=== PATIENT | female | born 1985 | race Caucasian/White ===

== ENCOUNTER 2023-01-15 07:20 | Outpatient (OUT) | payer OTHER, SELFPAY ==
[2023-01-15 08:45] VITALS: BP 137/84; PULSE 69
--- OUTSIDE RECORDS SUMMARY | 2023-02-19 19:28 | XMS_ITS | CCD ---
Author Name Unknown Address [address] [place] [id number] Organization [facility] Care Team Providers Care Slate Splitting Supervisor Name Role Phone DWIGHT ZAIDI Attending Unavailable DYAN, DWIGHT Admitting Unavailable DYAN, DWIGHT Consulting Unavailable DWIGHT ZAIDI Attending Unavailable DR ALBAN LONGORIA Consulting Unavailable DYAN, DWIGHT Admitting Unavailable DWIGHT ZAIDI Consulting Unavailable AURELIA, ANTOINE Referring Unavailable RASHMI JACOBO Primary Care Unavailable Nirav MEDIA REPORTER - Rashmi CHAVIS Primary Care Provider Nirav MEDIA REPORTER - Rashmi CHAVIS Primary Care Provider Nirav VILLARREAL - Rashmi CHAVIS Primary Care Provider ANTOINE MOSES Referring Unavailable RASHMI MARIE Primary Care Unavail able ANTOINE MOSES Referring Unavailable RASHMI MARIE Primary Care Unavail able AURELIA, ANTOINE Referring Unavailable RASHMI MARIE Primary Care Unavail able ANTOINE MOSES Referring Unavailable RASHMI MARIE Primary Care Unavail able JERAD GARCIA Attending Unavailable JERAD GARCIA Attending Unavailable JERAD GARCIA Attending Unavailable JERAD GARCIA Attending Unavailable JERAD GARCIA Referring Unavailable SHYANNE NAGEL Attending Unavailable Allergies Allergy Classification Reported Allergen(s) Allergy Type Date of Onset Reaction(s) Facility (4 sources) Wheat gluten extract Drug Allergy 2 Headaches, Swelling [facility] (1 source) Lactase / Lactobacillus acidophilus Drug Allergy 3 Diarrhea, Itching, Swelling [facility] Medications Current Medications Medication Drug Class(es) Dates Sig (Normalized) Sig (Original) Bisacodyl (4 sources) Stimulant Laxative Bisacodyl (LAXATIVE PO) Take by mouth OTC 0 Active levothyroxine sodium 0.025 mg oral tablet (1 source) l-Thyroxine Start: 08-06-2022 take 1 tablet by mouth once daily levothyroxine (SYNTHROID) 25 MCG tablet Indications: 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 TAKE 1 TABLET BY MOUTH EVERY DAY 30 tablet 0 08/06/2022 Active 24 hr metFORMIN hydrochloride 500 mg extended release oral tablet (3 sources) Biguanide Start: 12-22-2021 take 2 tablets by mouth twice daily metFORMIN (GLUCOPHAGE-XR) 500 MG extended release tablet Indications: PCOS (polycystic ovarian syndrome) TAKE 2 TABLETS BY MOUTH TWICE A DAY 120 tablet 3 12/22/2021 Active Start: 11-13-2021 take 2 tablets by mo uth twice daily metFORMIN (GLUCOPHAGE-XR) 500 MG extended release tablet Indications: PCOS (polycystic ovarian syndrome) TAKE 2 TABLETS BY MOUTH TWICE A DAY 120 tablet 2 11/13/2021 Active Multiple Vitamin (MULTIVITAM IN PO) (4 sources) Multiple Vitamin (MULTIVITAMIN PO) Take by mouth 0 Active Vit-Fe Fumarate-FA ( COMPLETE) 14-0.4 MG TABS (1 source) Vit-Fe Fumarate-FA ( COMPLETE) 14-0.4 MG TABS Take by mouth 0 Active wheat dextrin 3000 mg powder for oral solution (3 sources) Start: 10-04-2021 End: 01-02-2022 Wheat Dextrin (BENEFIBER) PO WD Indications: Constipation, unspecified constipation type Take 4 g by mouth in the morning and 4 g at noon and 4 g in the evening. Take with meals. 500 g 0 10/04/2021 01/02/2022 Active take 4 g by mouth th ree times daily at mealtime Wheat Dextrin (BENEFIBER) POWD Take 4 g by mouth 3 times daily (with meals) 0 Active Problems Active Problems Problem Classification Problem Date Documented Date Episodic/Chronic Menstrual disorders (4 sources) Irregular menstruation, unspecified; Translations: [IRREGULAR MENSTRUATION UNSPECIFIED] Onset: 11-14-2020 Chronic Mood disorders (3 sources) Recurrent major depressive episodes, moderate ; Translations: [Major depressive disorder, recurrent, moderate] Onset: 10-04-2021 10-04-2021 Chronic Other endocrine disorders (5 sources) Polycystic ovary syndrome; Translations: [Polycystic ovarian syndrome] Onset: 10-04-2021 Chronic Other endocrine disorders (1 source) Polycystic ovarian syndrome; Translations: [Polycystic ovarian syndrome] Onset: 10-04-2021 Chronic Other nutritional; endocrine; and metabolic disorders (4 sources) Body mass index 30+ - obesity; Translations: [Body mass index (BMI) 37.0-37.9, adult] Onset: 10-04-2021 10-04-2021 Chronic Thyroid disorders (11 sources) 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; Translations: [Other specified hypothyroidism] Onset: 10-04-2021 10-04-2021 Chronic Past or Other Problems Problem Classification Problem Date Documented Da te Episodic/Chronic Diabetes mellitus without complication (4 sources) Prediabetes; Translations: [Prediabetes] Onset: 10-04-2021 10-04-2021 Episodic Other nutritional; endocrine; and metabolic disorders (4 sources) Weight gain; Translations: [Abnormal weight gain] Onset: 10-04-2021 10-04-2021 Episodic Other screening for suspected conditions (not mental disorders or infectious disease) (4 sources) Encounter for screening for malignant neoplasm of cervix; Translations: [ENC SCREENING MALIG NEOPLASM CERV] Onset: 04-12-2020 Episodic Results Test Name Value Interpretation Reference Range Facil ity US OB FOLLOW UP TRANSABDOMIN AL APPROACHon 01-11-2023 US OB FOLLOW UP TRANSABDOMIN AL APPROACH This is a summary report. The complete report is available in the patient's medical record. If you cannot access the medical record, please contact the sending organization for a detailed fax or copy. EXAM: US OB FOLLOW UP TRANSABDOMINAL APPROACH DATE: 01/11/2023 10:54 AM COMPARISON: 01/04/2023 Transabdominal ultrasound of the gravid uterus was performed. FINDINGS: A single live intrauterine is noted in cephalic position. cardiac activity is measured at 138 bpm. The cervix appears closed measuring approximately 5.8 cm in longitudinal length. A grade 1-appearing placenta is anterior without evidence of placenta previa. The amniotic fluid index measures approximately 14.73 cm measured in 4 quadrants, which is within normal limits for gestation. 66th percentile MEASUREMENTS: BPD 8.9 cm, FL 7.3 cm, AC 33.4 cm, HC 32.3 cm, which corresponds to 36 weeks 6 days, +/-3 weeks. ESTIMATED WEIGHT: 3128 g g (6 lbs. 14 oz.), which is 18th percentile for gestation by LMP. No gross anatomic abnormalities are identified, within limits of the advanced gestational age. IMPRESSION: SINGLE LIVE INTRAUTERINE CORRESPONDING TO APPROXIMATELY 36 weeks 6 days, +/-3 weeks. APPROPRIATE GROWTH SINCE 01/04/2023. NO GROSS ABNORMALITY IDENTIFIED, WITHIN THE LIMITS OF THE STUDY. ELECTRONICALLY SIGNED BY: Alban Rosario MD Normal Not Available US OB FOLLOW UP TRANSABDOMIN AL APPROACHon 01-04-2023 US OB FOLLOW UP TRANSABDOMIN AL APPROACH US OB FOLLOW UP TRANSABDOMINAL APPROACH: 01/04/2023 9:21 AM CLINICAL HISTORY: Growth COMPARISON: December 28, 2022 Transabdominal ultrasound of the gravid uterus was performed. FINDINGS: A single live intrauterine is noted in vertex position. cardiac activity measures approximately 128 beats per minute. The lower uterine segment and cervix are seen, and appear within normal limits. The cervix measures approximately 4.6 cm in longitudinal length. A grade 2-appearing placenta is anterior without evidence of an abnormal subplacental collection or previa. The amniotic fluid (16.43 cm) within normal limits for gestation. The following measurements were obtained: BPD 8.92 cm, HC 31.97 cm, AC 32.90 cm, FL 7.13 cm, which corresponds to an aggregate gestational age of 36 weeks 5 days. Estimated weight is 3055 g which is in the 23.6 percentile. Single intrauterine is seen in cephalic presentation with heart motion. IMPRESSION: SINGLE LIVE INTRAUTERINE CORRESPONDING TO APPROXIMATELY 36 WEEKS 5 DAYS WITH AN EXPECTED DUE DATE OF JANUARY 29, 2023. NO GROSS ABNORMALITIES IDENTIFIED, WITHIN THE LIMITS OF THE STUDY. ELECTRONICALLY SIGNED BY: Terry Ramirez DO Normal Not Available US OB FOLLOW UP TRANSABDOMIN AL APPROACHon 12-28-2022 US OB FOLLOW UP TRANSABDOMIN AL APPROACH HISTORY: Supervision of . Interval follow-up. Age by LMP of 37 weeks 5 days. COMPARISON: 12/21/2022. TECHNIQUE: Sonography of the pelvis was performed by transabdominal technique. Images were obtained and stored in a permanent archive. RESULT: Gestation: Single present. Position: Cephalic BPD: 8.9 cm HC: 31.9 cm AC: 31.6 cm FL: 6.9 cm Anatomy: No gross anomalies in the visualized anatomy. Cardiac activity: 139 bpm Estimated weight (EFW): 2724 g (6 pounds 0 ounces), 14.2% Estimated gestational age: 35 weeks 5 days estimated gestational age by composite. Cervix: Not visualized secondary to bowel gas, empty bladder, position. Placenta: Location: Anterior Grade: 2 Previa: absent Amniotic fluid: 15.7 cm, 64th percentile IMPRESSION: Single, live intrauterine with estimated 35 weeks 5 days gestational age. Size measures less than dating by LMP of 37 weeks 5 days. ELECTRONICALLY SIGNED BY: Rivera Diane MD Normal Not Available No Panel Informationon 04-20 [facility] T4, Freeon 04-20-2022 Free T4 [Mass/Vol] 1.56 ng/dL 0.93 - 1.70 ng/dL [facility] TSHon 04-20-2022 Interpretation and review of laboratory results Abnormal [facility] TSH Qn 0.03 m[IU]/L Low [facility] Thyroid Stim. Horm.on 2022 Thyroid Stim. Horm. 0.03 uIU/mL Low 0.30-5.00 [facility] Comment on above: Performed By: #### T SH, FT4 #### [facility] [place] [id number] Kiln Burner Helper: James Graves MD Thyroxine, Freeon 04-20-2022 Thyroxine, Free 1.56 ng/dL Normal 0.93-1.70 [facility] Comment on above: Performed By: #### T SH, FT4 #### [facility] [address] [id number] Kiln Burner Helper: James Graves MD Basic Metabolic Panelon 09-2 Anion gap [Moles/Vol] 12 mmol/L 9 - 17 mmol/L [facility] Calcium [Mass/Vol] 9.0 mg/dL 8.6 - 10.4 mg/dL [facility] Chloride [Moles/Vol] 102 mmol/L 98 - 107 mmol/L [facility] CO2 [Moles/Vol] 23 mmol/L 20 - 31 mmol/L [facility] Creatinine [Mass/Vol] 0.63 mg/dL 0.5 - 0.9 mg/d L [facility] GFR >60 60 - PINF mL/mi n [facility] GFR Non- >60 60 - PINF m L/min [facility] GFR/1.73 sq M.predicted MDRD (S/P/Bld) [Vol rate/Area] [facility] Comment on above: Average GFR for 30-3 9 years old: 107 mL/min/1.73sq m Chronic Kidney Disease: <60 mL/min/1.73sq m Kidney failure: <15 mL/min/1.73sq m eGFR calculated using average adult body mass. Additional eGFR calculator available at: http://www.NAVX/TechLoaner_crcl_2011.htm Glucose [Mass/Vol] 75 mg/dL 70 - 99 mg/dL [facility] Potassium [Moles/Vol] 3.9 mmol/L 3.7 - 5.3 mmol /L [facility] Sodium [Moles/Vol] 137 mmol/L 135 - 144 mmol/L [facility] Urea nitrogen (BldV) [Mass/Vol] 9 mg/dL 6 - 20 mg/dL [facility] Basic Metabolic Profon 11-28 (cont.) Normal [facility] Comment on above: Result Comment: Aver age GFR for 30-39 years old: 107 mL/min/1.73sq m Chronic Kidney Disease: <60 mL/min/1.73sq m Kidney failure: <15 mL/min/1.73sq m eGFR calculated using average adult body mass. Additional eGFR calculator available at: http://www.NAVX/TechLoaner_crcl_2011.htm Performed By: #### B MP #### [employer] [address] [place] [address] Kiln Burner Helper: James Graves MD Anion gap [Moles/Vol] 12 mmol/L Normal 9-17 [facility] Comment on above: Performed By: #### B MP #### [facility] [employer] [address] [place] [address] Kiln Burner Helper: James Graves MD Calcium [Mass/Vol] 9.0 mg/dL Normal 8.6-10.4 [facility] Comment on above: Performed By: #### B MP #### [facility] [address] [place] [address] Kiln Burner Helper: James Graves MD Chloride [Moles/Vol] 102 mmol/L Normal 98-107 [facility] Comment on above: Performed By: #### B MP #### [address] [address] Kiln Burner Helper: James Graves MD CO2 [Moles/Vol] 23 mmol/L Normal 20-31 [facility] Comment on above: Performed By: #### B MP #### [address] [address] Kiln Burner Helper: James Graves MD Creatinine [Mass/Vol] 0.63 mg/dL Normal 0.50-0.90 [facility] Comment on above: Performed By: #### B MP #### [address] [address] Kiln Burner Helper: James Graves MD GFR, Amer >60 Normal >60 [facility] Comment on above: Performed By: #### B MP #### [facility] [employer] [address] [place] [address] Kiln Burner Helper: James Graves MD GFR,non Amer >60 Normal >60 [facility] Comment on above: Performed By: #### B MP #### [address] [address] Kiln Burner Helper: James Graves MD Glucose [Mass/Vol] 75 mg/dL Normal 70-99 [facility] Comment on above: Performed By: #### B MP #### [id number] [place] [address] Kiln Burner Helper: James Graves MD Potassium [Moles/Vol] 3.9 mmol/L Normal 3.7-5.3 [facility] Comment on above: Performed By: #### B MP #### [address] [address] Kiln Burner Helper: James Graves MD Sodium [Moles/Vol] 137 mmol/L Normal 135-144 [facility] Comment on above: Performed By: #### B MP #### [facility] [employer] [address] [place] [address] Kiln Burner Helper: James Graves MD Urea nitrogen [Mass/Vol] 9 mg/dL Normal 6-20 [facility] Comment on above: Performed By: #### B MP #### [address] [address] Kiln Burner Helper: James Graves MD US HEAD NECK SOFT TISSUE THY [facility] 11-28-2021 US HEAD NECK SOFT TISSUE THYROID EXAMINATION: THYROID ULTRASOUND 11/28/2021 10:52 am COMPARISON: None HISTORY: ORDERING SYSTEM PROVIDED HISTORY: Goiter TECHNOLOGIST PROVIDED HISTORY: This procedure can be scheduled via [employer]. Access your [employer] account by visiting [employer]. FINDINGS: Right thyroid lobe: 4.2 cm x 1.4 cm x 1.7 cm Left thyroid lobe: 4.1 cm x 1.3 cm x 1.5 cm Isthmus: 0.3 cm THYROID GLAND: Normal size. Mildly heterogeneous echogenicity and echotexture. Decreased vascularity. NODULES: None visualized. CERVICAL LYMPHADENOPATHY: None visualized. IMPRESSION: Heterogeneous, hypovascular appearance of thyroid parenchyma likely due to chronic changes of thyroiditis. Interpreted by: Ortiz Bryant MD Signed by: Ortiz Bryant MD 11/28/21 Final result Normal [facility] Heterogeneous, hypov ascular appearance of thyroid parenchyma likely due to chronic changes of thyroiditis. [facility] RIS CONSOLIDATE D EXAMINATION: THYROID ULTRASOUND 11/28/2021 10:52 am COMPARISON: None HISTORY: ORDERING SYSTEM PROVIDED HISTORY: Goiter TECHNOLOGIST PROVIDED HISTORY: This procedure can be scheduled via [employer]. Access your [employer] account by visiting [employer]. FINDINGS: Right thyroid lobe: 4.2 cm x 1.4 cm x 1.7 cm Left thyroid lobe: 4.1 cm x 1.3 cm x 1.5 cm Isthmus: 0.3 cm THYROID GLAND: Normal size. Mildly heterogeneous echogenicity and echotexture. Decreased vascularity. NODULES: None visualized. CERVICAL LYMPHADENOPATHY: None visualized. [facility] CONSOLIDVIDHI D Ortiz Bryant MD - 11/28/2021 EXAMINATION: THYROID ULTRASOUND 11/28/2021 10:52 am COMPARISON: None HISTORY: ORDERING SYSTEM PROVIDED HISTORY: Goiter TECHNOLOGIST PROVIDED HISTORY: This procedure can be scheduled via [employer]. Access your [employer] account by visiting [employer]. FINDINGS: Right thyroid lobe: 4.2 cm x 1.4 cm x 1.7 cm Left thyroid lobe: 4.1 cm x 1.3 cm x 1.5 cm Isthmus: 0.3 cm THYROID GLAND: Normal size. Mildly heterogeneous echogenicity and echotexture. Decreased vascularity. NODULES: None visualized. CERVICAL LYMPHADENOPATHY: None visualized. IMPRESSION: Heterogeneous, hypovascular appearance of thyroid parenchyma likely due to chronic changes of thyroiditis. DARNELL TERRY [facility] Work Phone: Radiology Study observation (narrative) DARNELL JEFERSONMaxim [facility] [employer] Work Phone: US HEAD NECK SOFT TISSUE THY ROIDOrdered By: Ortiz Brynat on 11-28-2021 DARNELL [facility] [employer] Work Phone: US HEAD NECK SOFT TISSUE THY ROIDon 02-03-2021 US HEAD NECK SOFT TISSUE THYROID EXAMINATION: US HEAD NECK SOFT TISSUE THYROID CLINICAL HISTORY: GOITER. FINDINGS: Right lobe measures 4.7 x 1.6 x 1.6 cm. Left lobe measures 4.3 x 1.3 x 1.4 cm. Isthmus measures 3.1 mm. Right lobe demonstrates no discrete cystic or solid lesions. In the left lobe, posteriorly in the lower pole, a 4.8 x 3.0 x 4.6 mm nearly completely solid, isoechoic, wider than tall, ill-defined, noncalcified nodule is identified. IMPRESSION: CATEGORY 3: MILDLY SUSPICIOUS. NO BIOPSY REQUIRED. FOLLOW-UP IMAGING IF GREATER THAN OR EQUAL TO 1.5 CM. LEFT LOBE, LOWER POLE. Interpreted by: Mark Guallpa MD Signed by: Mark Guallpa MD 02/03/21 Final result Normal [facility] TSH w/Reflexon 12-30-2020 TSH w/Reflex 1.780 uIU/mL Normal 0.440-3.86 [facility] Comment on above: Performed By: #### T SHR #### [facility] [address] [facility] [address] Thyroxine Freeon 12-30-2020 Thyroxine Free 1.15 ng/dL Normal 0.84-1.68 [facility] Comment on above: Performed By: #### F RT4 #### [facility] [address] [facility] [address] Testosterone Free and Total by LC-MS/MSon 12-05-2020 Sex Hormone Binding Globulin 37 nmol/L Normal 30-135 [facility] Comment on above: Result Comment: REFE RENCE INTERVAL: Sex Hormone Binding Globulin Access complete set of age- and/or gender-specific reference intervals for this test in the [facility] Test Directory (wooju). Testosterone, Free LC-MS/MS 3.3 pg/mL Normal 1.3-9.2 [facility] Comment on above: Result Comment: To c onvert to pmol/L, multiply pg/mL by 3.47 The concentration of Free Testosterone is derived from a mathematical expression based on the constant for the binding of testosterone to sex hormone binding globulin. Testosterone, Free LC-MS/MS Reference Interval for Females 18 years and older Postmenopausal: 0.6 - 3.8 pg/mL REFERENCE INTERVAL: Testosterone, Free LC-MS/MS Access complete set of age- and/or gender-specific reference intervals for this test in the [facility] Test Directory (wooju). This test was developed and its performance characteristics determined by [facility]. It has not been cleared or approved by the [place] Food and Drug Administration. This test was performed in a CLIA certified laboratory and is intended for clinical purposes. Performed By: [facility] [address] [place] [address] Data Input Clerk: Anca Martínez MD Testosterone, LC-MS/MS 21 ng/dL Normal 9-55 [facility] Comment on above: Result Comment: Tota l Testosterone, Females 18 years and older Premenopausal 9-55 ng/dL Postmenopausal 5-32 ng/dL REFERENCE INTERVAL: Testosterone, LC-MS/MS Access complete set of age- and/or gender-specific reference intervals for this test in the [facility] Test Directory (wooju). This test was developed and its performance characteristics determined by [facility]. It has not been cleared or approved by the US Food and Drug Administration. This test was performed in a CLIA certified laboratory and is intended for clinical purposes. Thyroid Peroxidase(TPO) Abon 12-02-2020 Thyroid Peroxidase(TPO) Ab 205.0 IU/mL Critically high 0.0 -25.0 [facility] Comment on above: Result Comment: Reference Range: <25.0 Negative 25.0-35.0 Equivocal >35.0 Positive When results are Equivocal, it is recommended to retest after 8-12 weeks. [address] [place] [address] ([phone] Basic Metabolic Panelon 09-2 Anion gap [Moles/Vol] 12 mmol/L Normal 9-15 [facility] Comment on above: Performed By: #### B MP #### [facility] [address] [place] [address] Calcium [Mass/Vol] 9.3 mg/dL Normal 8.5-9.9 [facility] Comment on above: Performed By: #### B MP #### [facility] [address] [place] [address] Chloride [Moles/Vol] 100 mmol/L Normal 95-107 [facility] Comment on above: Performed By: #### B MP #### [facility] [address] [place] [address] CO2 [Moles/Vol] 27 mmol/L Normal 20-31 [facility] Comment on above: Performed By: #### B MP #### [facility] [address] [place] [address] Creatinine [Mass/Vol] 0.67 mg/dL Normal 0.50-0.90 [facility] Comment on above: Performed By: #### B MP #### [facility] [address] [place] [address] GFR >60.0 Normal >60 [facility] Comment on above: Result Comment: >60 mL/min/1.73m2 EGFR, calc. for ages 18 and older using the MDRD formula (not corrected for weight), is valid for stable renal function. Performed By: #### B MP #### [facility] [address] [place] [address] GFR/1.73 sq M.predicted raman g blacks MDRD (S/P/Bld) [Vol rate/Area] mL/min/{1.73_m2} Normal >60 [facility] Comment on above: Result Comment: >60 mL/min/1.73m2 EGFR, calc. for ages 18 and older using the MDRD formula (not corrected for weight), is valid for stable renal function. Performed By: #### B MP #### [facility] [address] [place] [address] Glucose [Mass/Vol] 84 mg/dL Normal 70-99 [facility] Comment on above: Performed By: #### B MP #### [facility] [address] [place] [address] Potassium [Moles/Vol] 4.3 mmol/L Normal 3.4-4.9 [facility] Comment on above: Performed By: #### B MP #### [facility] [address] [place] [address] Sodium [Moles/Vol] 139 mmol/L Normal 135-144 [facility] Comment on above: Performed By: #### B MP #### [facility] [address] [place] [address] Urea nitrogen [Mass/Vol] 10 mg/dL Normal 6-20 [facility] Comment on above: Performed By: #### B MP #### [facility] [address] [place] [address] Insulinon 11-30-2020 Insulin 6.6 uIU/mL Normal 2.6-24.9 [facility] Comment on above: Result Comment: NOTE: to convert Insulin to pmol/L, multiply uIU/mL by 6.9 Performed By: #### I NSUL #### [facility] [address] [place] [address] US PELVIS AND TRANSVAGon US PELVIS AND TRANSVAG EXAMINATION: US P HILLARY AND TRANSVAG HISTORY: Irregular periods COMPARISON: No relevant comparison available. TECHNIQUE: Transabdominal and transvaginal sonographic examination. FINDINGS: UTERUS: Normal size and appearance. Uterus size: 8.5 x 5.3 x 4.5 cm. ENDOMETRIUM: Normal homogeneous appearance. Endometrial thickness: 7 mm RIGHT OVARY: Contains a 1.8 cm dominant follicle. Duplex Doppler demonstrates normal waveform and flow; resistive index 0.47. Ovary size: 3.6 x 2.3 x 2.1 cm LEFT OVARY: Normal size and appearance. Duplex Doppler demonstrates normal waveform and flow; resistive index 0.46. Ovary size: 2.8 x 2.2 x 1.6 cm CUL-DE-SAC: Unremarkable. No significant free fluid. BLADDER: Unremarkable. OTHER: None. IMPRESSION: 1. No abnormal or suspicious findings to account for patient's symptoms. Electronically authenticated by: ALBAN LONGORIA Date: 2020-11-14 13:11 Normal [facility] Pap IG, rfx Aptima HPV, rfx 16/18,45on 04-15-2020 . . Normal [facility] Comment on above: Result Comment: Perf ormed at: WB Performed By: #### P APHR2A #### [facility] [address] [place] [address] Fletcher Emily DIAGNOSIS: Comment Normal [facility] Comment on above: Result Comment: NEGA TIVE FOR INTRAEPITHELIAL LESION OR MALIGNANCY. Performed at: WB Performed By: #### P APHR2A #### [facility] [address] [place] [address] Fletcher Diaz HPV Aptima Negative Normal Negative [facility] Comment on above: Result Comment: This nucleic acid amplification test detects fourteen high-risk HPV types (16,18,31,33,35,39,45,51,52,56,58,59,66,68) without differentiation. Performed at: =G Performed By: #### P APHR2A #### [facility] [address] [place] [address] Fletcher Diaz Methodology: Comment Normal [facility] Comment on above: Result Comment: This liquid based ThinPrep(R) pap test was screened with the use of an image guided system. Performed at: [facility] Performed By: #### P APHR2A #### [facility] [address] [place] [address] Fletcher Diaz Note: Comment Normal [facility] Comment on above: Result Comment: The Pap smear is a screening test designed to aid in the detection of premalignant and malignant conditions of the uterine cervix. It is not a diagnostic procedure and should not be used as the sole means of detecting cervical cancer. Both false-positive and false-negative reports do occur. . Performed at: [facility] Performed By: #### P APHR2A #### [facility] [address] [place] [address] Fletcher Diaz Performed by: Comment Normal The [facility] Comment on above: Result Comment: Kate Archer, Milk Route Deliverer (ASCP) Performed at: WB Performed By: #### P APHR2A #### [facility] [address] [place] [address] Fletcher Diaz Specimen adequacy: Comment Normal [facility] Comment on above: Result Comment: Sati sfactory for evaluation. No endocervical component is identified. Performed at: WB Performed By: #### P APHR2A #### [facility] [address] [place] [address] Fletcher Diaz Encounters Encounter Date Encounter Type Care Provider Facility Start: 02-04-2023 End: 02-05-2023 ambulatory JERAD L FLORO Not Available Start: 01-31-2023 End: 02-01-2023 ambulatory JERAD L FLORO Not Available Start: 01-29-2023 End: 01-30-2023 ambulatory JERAD L FLORO Not Available Start: 01-15-2023 End: 01-15-2023 ambulatory SHYANNE JASMINEZIO Not Available Start: 01-11-2023 End: 01-12-2023 ambulatory JERAD L FLORO Not Available Start: 01-08-2023 End: 01-09-2023 ambulatory JERAD L FLORO Not Available Start: 08-06-2022 End: 08-07-2022 ambulatory [facility] Start: 08-06-2022 End: 08-06-2022 Subsequent hospital visit by physician Rashmi Marie APRN - [place] Work Phone: [facility] Start: 04-20-2022 End: 04-21-2022 ambulatory [facility] Start: 04-20-2022 End: 04-20-2022 Subsequent hospital visit by physician Rashmi Marie APRN - [place] Work Phone: [facility] Comment on above: Goiter Start: 11-28-2021 End: 12-01-2021 ambulatory [facility] Start: 11-28-2021 End: 11-30-2021 Subsequent hospital visit by physician Fritz [facility] Comment on above: PCOS (polycystic ova rashi syndrome) Goiter Start: 02-03-2021 End: 02-06-2021 ambulatory [facility] Start: 11-14-2020 End: 11-15-2020 ambulatory DWIGHT ZAIDI Facility:[facility]1 Start: 04-12-2020 End: 04-12-2020 ambulatory DWIGHT ZAIDI Facility:[facility] Procedures Date Procedure Procedure Detail Performing Clinician Start: 04-20-2022 Assay of free thyroxine Antoine Moses MD Work Phone: Start: 11-28-2021 Us soft tissue head & neck real time imge docm Antoine Moses MD Work Phone: Start: 11-28-2021 Basic metabolic pane l calcium total Antoine Moses MD Work Phone: Plan of Treatment Date Care Activity Detail Author Start: 07-06-2031 COVID-19 Vaccine (#1) COVID-19 Vacci ne (#1) [facility] Comment on above: Postponed from 02/12 (Patient Refused) Start: 07-05-2026 Varicella vaccine (1 of 2 - 2-dose childhood series) Varicella vaccine (1 of 2 - 2-dose childhood series) [facility] Comment on above: Postponed from 08/13 (Not Indicated) Start: 05-01-2023 Depression Monitoring Depression Mon itoring [facility] Start: 01-04-2023 DTaP/Tdap/Td vaccine (1 - Tdap) DTaP/Tdap/Td vaccine (1 - Tdap) [facility] Comment on above: Postponed from 08/13 (Patient Refused) Start: 01-04-2023 Influenza vaccination [facility] [employer] Comment on above: Postponed from 10/02 (Patient Refused) Postponed from 10/02 (Patient Refused) Start: 10-24-2022 End: 10-24-2022 Patient encounter procedure 10/24/2022 Office Visit Primary Care Rashmi Marie, MEDIA REPORTER - METALLURGY LABORATORY TECHNICIAN [address] [place] [address] [facility] Start: 10-04-2022 Depression Monitoring Depression Mon itoring [facility] Start: 10-04-2022 Hemoglobin A1c measurement A1C test (Diabetic or Prediabetic) [facility] Start: 08-13-2022 End: 08-13-2022 Patient encounter procedure 08/13/2022 Office Visit Endocrinology Antoine Moses MD [address] [place] [address] [facility] Start: 06-04-2022 Screening for malignant neoplasm of cervix Cervical cancer screen [facility] Comment on above: Postponed from 08/13 (Patient Refused) Start: 05-14-2022 End: 05-14-2022 Patient encounter procedure 05/14/2022 Office Visit Endocrinology Antoine Moses MD [address] [place] [address] [facility] Start: 05-01-2022 End: 05-01-2022 Patient encounter procedure 05/01/2022 Office Visit Primary Care Rashmi Marie, MEDIA REPORTER - METALLURGY LABORATORY TECHNICIAN [address] [place] [address] [facility] Start: 01-04-2022 End: 01-04-2022 Patient encounter procedure 01/04/2022 Office Visit Primary Care Rashmi Marie, MEDIA REPORTER - METALLURGY LABORATORY TECHNICIAN [address] [place] [address] [facility] Start: 10-02-2021 Influenza vaccination Flu vaccine (# 1) [facility] Start: 08-13-2013 Screening for malignant neoplasm of cervix [facility] Start: 08-13-2004 Screening for malignant neoplasm of cervix Pap smear [facility] Start: 08-13-2002 DTaP/Tdap/Td vaccine (1 - Tdap) DTaP/Tdap/Td vaccine (1 - Tdap) [facility] Immunizations Immunization Date Immunization Notes Care Provider Fa cili 06-02-2018 tetanus toxoid, unspecified formulation Rashmi Marie MEDIA REPORTER - METALLURGY LABORATORY TECHNICIAN Work Phone: [facility] 12-21-2014 influenza virus vaccine, unspecified formulation Rashmi Marie MEDIA REPORTER - METALLURGY LABORATORY TECHNICIAN Work Phone: [facility] Work Phone: Payers Date Payer Category Payer Unknown [id number] 1.2.84 [id number] 1983 Unknown [id number] 2.16.84 [id number] 1983 Unknown [id number] 2.16.84 [id number] 1983 Unknown [id number] 2.16.8 [id number] 1983 Unknown [id number] 2.16. [id number] 1983 Unknown [id number] 2.16. [id number] 1983 Unknown [id number] 2.16. [id number] 1983 Unknown [id number] 2.16. [id number] 1983 Unknown [id number] 2.16.840 .[id number] 1983 Unknown [id number] 2.16.840 .[id number] 1983 Unknown [id number] 2.16.840 .[id number] 1983 Unknown [id number] 2.16.840. [id number] 1983 Unknown [id number] 2.16.840. [id number] 1983 Unknown [id number] .[id number] 1959 Unknown [id number] Social History Date Type Detail Facility Start: 11-13-2021 Tobacco smoking stat [facility] Never smoked tobacco [facility] [employer] Work Phone: Start: 11-13-2021 Tobacco use and exposure Smokeless tobacco non-user [facility] Phone: Start: 11-13-2021 End: 07-26-2022 Alcohol intake Lifetime non-drinker (finding) [facility] Phone: Start: 01-18-2021 End: 05-01-2022 History SDOH Alcohol Frequency 1 [facility] Phone: Start: 01-18-2021 End: 05-01-2022 History SDOH Financial 5 [facility] Phone: Start: 1985 Sex Assigned At Female [facility] [employer] Start: 11-03-2021 End: 11-13-2021 Exposure to SARS-CoV-2 (event) Not sure [facility] Start: 05-01-2022 History SDOH Transpo rt Non-Med 2 [facility] Phone: Start: 04-22-2022 [facility] Phone: Evaluation note Note Date & Type Note Facility Evaluation note Diagnosis PCOS (polycystic ovarian syndrome) Polycystic ovaries documented in this encounter [facility] Phone: Evaluation note Note Date & Type Note Facility Evaluation note Diagnosis Goiter Goiter, unspecified documented in this encounter [facility] Phone: Evaluation note Note Date & Type Note Facility Evaluation note Diagnosis Goiter Goiter, unspecified documented in this encounter [facility] Phone: Summary Purpose Family History No Family History Records FoundNo Family History Records FoundNo Family History Records FoundNo Family History Records FoundNo Family History Records Found Advance Directives No Advanced Directives Records FoundNo Advanced Directives Records FoundNo Advanced Directives Records FoundNo Advanced Directives Records FoundNo Advanced Directives Records Found Reason for Referral Specialty Diagnoses / Procedures Referred By [place] t Referred To Contact Radiology Diagnoses Goiter Procedures US HEAD NECK SOFT TISSUE THYROID Antoine Moses MD [address] [place] [address] Referral ID Status Reason Start Date Expiration Date Visits Re quested Visits Authorized [id number] Closed 11/13/2021 11/13/2022 1 1 Additional Source Comments INFORMATION SOURCE (unrecogn ized section and content) DATE CREATED AUTHOR 11/20/2020 [facility] DATE CREATED AUTHOR AUTHOR'S ORGANIZ ATION 12/31/2020 [facility] DATE CREATED AUTHOR AUTHOR'S ORGANIZ ATION 02/05/2021 [facility] DATE CREATED AUTHOR AUTHOR'S ORGANIZ ATION 08/30/2022 [facility] DATE CREATED AUTHOR AUTHOR'S ORGANIZ ATION 02/10/2023 [facility] [employer] Care Teams (unrecognized sec tion and content) Slate Splitting Supervisor Relationship Specialty Start Date End Date Rashmi Marie, MEDIA REPORTER - METALLURGY LABORATORY TECHNICIAN [address] [place] [id number] PCP - General Family Medicine 01/18/21 [employer] Spl[employer] Supervisor Relationship Specialty Start Date End Date Rashmi Marie, MEDIA REPORTER - METALLURGY LABORATORY TECHNICIAN [address] [place] [id number] PCP - General Family Medicine 01/18/21 [employer] Supervisor Relationship Specialty Start Date End Date Rashmi Marie, MEDIA REPORTER - METALLURGY LABORATORY TECHNICIAN [address] [place] [id number] PCP - General Family Medicine 01/18/21 [employer] Spl[employer] Supervisor Relationship Specialty Start Date End Date Rashmi Marie, MEDIA REPORTER - METALLURGY LABORATORY TECHNICIAN [address] [place] [address] PCP - General Family Medicine 01/18/21 Reason for Visit (unrecogniz ed section and content) Specialty Diagnoses / Procedures Referred By Darrel t Referred To Contact Radiology Diagnoses Goiter Procedures US HEAD NECK SOFT TISSUE THYROID Antoine Moses MD [address] [place] [address] Referral ID Status Reason Start Date Expiration Date Visits Re quested Visits Authorized [id number] Closed 11/13/2021 11/13/2022 1 1 FOR RECORDS PERTAINING TO PATIENTS WHO ARE OR HAVE BEEN ENROLLED IN A CHEMICAL DEPENDENCY/SUBSTANCEABUSE PROGRAM, SOME INFORMATION MAY BE OMITTED. This clinical summary was aggregated from multiple sources. Caution should be exercised in using it in the provision of clinical care. This summary normalizes information from multiple sources, and as a consequence, information in this document may materially change the coding, format and clinical context of patient data. In addition, data may be omitted in some cases. CLINICAL DECISIONS SHOULD BE BASED ON THE PRIMARY CLINICAL RECORDS. [employer] provides no warranty or guarantee of the accuracy or completeness of information in this document.
== END 2023-01-15 09:39 ==
LOC: FBCO 07:23 → FBC 08:17
PROVIDERS: Visit Provider Obstetrics & Gynecology
DX: O09.529 Supervision of elderly multigravida, unspecified trimester (principal); Z3A.00 Weeks of gestation of pregnancy not specified; O99.280 Endocrine, nutritional and metabolic diseases complicating pregnancy, unspecified trimester; E03.9 Hypothyroidism, unspecified
CPT/HCPCS: 59025

== ENCOUNTER 2023-01-20 15:10 | Inpatient (IN) | payer OTHER, SELFPAY ==
[2023-01-20] VITALS (34 sets, daily range): BP systolic 110–154; BP diastolic 68–91; PULSE 57–94; RESP 11–25; TEMP 36.4–37; O2SAT 95–100
[2023-01-20] MEDS: 0.9 % SODIUM CHLORIDE 1,000 ML 1000 ML IV ×2 (16:00→16:59)
[2023-01-20 16:21] LABS: Hematocrit 36.4 % (36.0-48.0); Hemoglobin 12.9 g/dL (12.0-16.0); Mean Corpuscular HGB Conc 35.4 g/dL (29.9-35.2); Mean Corpuscular Hemoglobin 32.3 pg (26.7-34.0); Mean Corpuscular Volume 91.2 fL (81.0-99.0); Platelet Count 161 10^3/uL (150-450); Red Blood Count 3.99 10^6/uL (4.20-5.40); Red Cell Distribution Width 11.9 % (11.0-15.0)
[2023-01-20 16:30] LABS: Amphetamine Screen Urine NEGATIVE (NEGATIVE); Barbiturates Screen Urine NEGATIVE (NEGATIVE); Benzodiazepines Screen Urine NEGATIVE (NEGATIVE); Buprenorphine Screen Urine NEGATIVE (NEGATIVE); Cannabinoid Screen Urine NEGATIVE (NEGATIVE); Cocaine Screen Urine NEGATIVE (NEGATIVE); Methadone Screen Urine NEGATIVE (NEGATIVE); Methamphetamines Screen Urine NEGATIVE (NEGATIVE); Opiate Screen Urine NEGATIVE (NEGATIVE); Oxycodone Screen Urine NEGATIVE (NEGATIVE); Phencyclidine Screen Urine NEGATIVE (NEGATIVE); Tricyclic Antidepressant Urine NEGATIVE (NEGATIVE)
--- NOTE | 2023-01-20 16:40 | PM.OBHP ---
OB - H&P: HPI History of Present Illness Chief complaint: FBC : 2 Para: 0 Gestational age based on last menstrual period: 41 weeks Comments: patient has SROM at 6:30 this morning and patient called me at 2:38 pm with report of rupture. she then came to [facility] and placed on EFM and with first contraction it was noted that there was a later deceleration. she then had a variable and another late. I gave orders and went to the hosptial. After discussion with patient regarding the risk factors of AMA, thyroid, post dates, late deceleration, absent accelerations when I assessed the strip, and cervix is closed and not able to augment with pitocin. Patient was recommended a primary section for the risk factors just listed. Patient is tearful, but agrees to the section. All questions answered, consent obtained. Dr Mccarthy notified and updated and surgery team called. 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) Hypothyroid ?E03.9 - Hypothyroidism, unspecified (ICD-10) PCOS (polycystic ovarian syndrome) ?E28.2 - Polycystic ovarian syndrome (ICD-10) Spontaneous ?O03.9 - Complete or unspecified spontaneous without complication (ICD-10) Surgical History (Updated 01/20/23 @ 15:32 by Chasity Wise) History of dilatation and curettage ?Z98.890 - Other specified postprocedural states (ICD-10) Meds Home Medications and Allergies Home Medications Medication Instructions Recorded Confirmed Type levothyroxine 25 mcg tablet mcg 01/20/23 History vit no.95-ferrous tab PO 01/20/23 History fumarate 28 mg-folic acid 800 mcg tablet () Allergies Allergy/AdvReac Type Severity Reaction Status Date / Time gluten Allergy Unknown Uncoded 01/20/23 16:48 Exam Constitutional Vital Signs, click to edit/add: Last Vital Signs Pulse 57 L 01/20/23 16:17 Resp 16 01/20/23 15:10 BP 130/80 01/20/23 16:17 O2 Del Method Room Air 01/20/23 15:10 Documenting provider has reviewed patient's vital signs: yes Common normals: no apparent distress and oriented x3 Orientation/consciousness: Yes awake HENMT Common normals: normocephalic Eye Common normals: EOMs intact bilaterally Neck & C-Spine Common normals: full ROM and no JVD Lymph Lymphatic: no lymphadenopathy noted Chest Common normals: inspection of chest normal Respiratory Common normals: normal respiratory effort, no retractions and clear to auscultation bilaterally Cardio Common normals: regular rate, regular rhythm and no murmurs Rate: regular rate GI Common normals: Normal to inspection, nondistended, normoactive bowel sounds present Common normals: no CVA tenderness Back & Pelvis Common normals: no CVA tenderness Extremity Common normals: normal to inspection and full ROM Neuro Common normals: oriented x3 and moves all extremities Sensorium/orientation: awake, alert, oriented to person, oriented to place and oriented to time Psych Common normals: mental status grossly normal, thought process normal and cooperative Results Labs Labs: Short CBC 01/20/23 Range/Units 15:30 WBC 10.0 (4.0-11.0) 10^3/uL Hgb 12.9 (12.0-16.0) g/dL Hct 36.4 (36.0-48.0) % Plt Count 161 (150-450) 10^3/uL OB - A/P Assessment and Plan (1) Post-dates : Plan primary section
[2023-01-20] MEDS: CITRIC ACID/SODIUM CITRATE 30 ML SOLUTION ORACIT SHOHL'S SOLN PO (16:55)
[2023-01-20] MEDS: METOCLOPRAMIDE HCL 10 MG/2 ML VIAL IVP (16:55)
[2023-01-20] MEDS: FAMOTIDINE/PF 20 MG/2 ML VIAL IV (16:55)
[2023-01-20] MEDS: CEFAZOLIN SODIUM/DEXTROSE,ISO 2 GM/50 ML PIGGYBACK IV ×2 (16:59→23:46)
[2023-01-20 17:13] LABS: Bilirubin Urine NEGATIVE (NEGATIVE); Blood Urine SMALL (NEGATIVE); Clarity Urine CLEAR (CLEAR); Color Urine LT. YELLOW (YELLOW); Glucose Urine UA NEGATIVE (NEGATIVE); Ketones Urine NEGATIVE (NEGATIVE); Leukocyte Esterase Urine TRACE (NEGATIVE); Nitrite Urine NEGATIVE (NEGATIVE); Protein Urine NEGATIVE (NEG/TRACE); Specific Gravity Urine <=1.005 (1.005-1.025); Urobilinogen Urine 0.2 EU/dL (0.2-1.0); pH Urine 6.5 (5.0-9.0)
[2023-01-20 17:19] LABS: Bacteria Urine NONE SEEN #/HPF (NONE SEEN); Mucus Urine NONE SEEN (NONE SEEN); RBC Urine 0-2 #/HPF (0-2); Squamous Epithelial Cell Urine FEW #/LPF (NONE/RARE); WBC Urine 0-2 #/HPF (NONE SEEN)
[2023-01-20 17:20] LABS: Cast Seen? NONE SEEN #/LPF (NONE SEEN); Crystals Seen? None Seen #/HPF (None Seen)
[2023-01-20] MEDS: LACTATED RINGER'S SOLUTION 1,000 ML 50 ML IV (17:42)
--- NOTE | 2023-01-20 18:00 | P.OBPRC_ITS ---
Procedure Pre-op/Post-op diagnoses: Pre-Op/Post-Op Diagnoses Operation Date: 01/20/23 17:00 <No data on this case meets the specified criteria> Procedure: Procedures Operation Date: 01/20/23 17:00 Actual Procedure Side Surgeon p , viable baby girl born Not Applicable [place] Mccarthy DO [employer] Supervisor: JERAD GARCIA Estimated blood loss (mL): 575 Disposition: floor Anesthesia type: Spinal
--- NOTE | 2023-01-20 18:01 | PM.ONB ---
Brief Operative Note Date of procedure: 01/20/23 Pre-op diagnosis: iup at 40 6/7wks, post dates, ama, hypothyroidism, recurrent variable decel Post-op diagnosis: same as pre-op Procedure: NAME OF PROCEDURE: [ section ] PROCEDURE: Patient was taken back to the Operating Room where she was given a spinal anesthesia with Duramorph without difficulty. She was prepped and draped in the normal sterile fashion. A Pfannenstiel skin incision was then made 2 cm above the symphysis pubis and carried down to underlying rectus fascia using a Bovie. The fascia was incised in the midline and extended laterally using Chaves scissors. Two Cruz clamps were placed on the superior aspect of the fascia and dissected off the underlying rectus muscles. The same was performed on the inferior aspect as well. The muscles were then in the midline. Peritoneum was identified and entered bluntly. The peritoneum was then extended superiorly and inferiorly with good visualization of the bladder. The bladder blade was inserted. A low transverse incision was made on the patient's uterus and extended laterally digitally. The was then delivered atraumatically after the bladder blade was removed in the cephalic position. The cord was clamped and cut. Cord blood was obtained. The infant was handed off to awaiting team. The patient's placenta was spontaneously delivered. The uterus was then exteriorized. The uterus was cleared of all clots and debris. The bladder blade was reinserted. The patient's uterine incision was closed using #0 Vicryl in a running lock fashion. Excellent hemostasis was assured. The uterus was then returned to the patient's abdomen. The patient's abdomen was copiously irrigated using warm saline. Peritoneal gutters were cleared of all clots and debris. Again excellent hemostasis was assured. The patient's peritoneum was closed using 3-0 Vicryl in a running fashion. The patient's fascia was closed using #0 Vicryl in a running fashion. The patient's skin was closed using 4-0 Vicryl subcuticularly. The patient tolerated the procedure well. Sponge, lap, and needle counts were correct x2. The patient was taken to the Recovery Room in stable condition. Anesthesia: spinal Surgeon: Cuba Mccarthy Storyboard Artist: JERAD GARCIA Estimated blood loss (mL): 575 Pathology: other (placenta) Condition: stable Disposition: PACU
[2023-01-20] MEDS: BUPIVACAINE LIPOSOME/PF 266 MG/13.3 ML VIAL INJ (18:24)
[2023-01-20] MEDS: BUPIVACAINE HCL 0.25% PF 25 MG/10 ML VIAL INJ (18:25)
[2023-01-20] MEDS: 0.9 % SODIUM CHLORIDE 10 ML SYRINGE - SALINE FLUSH INJ (18:53)
--- NOTE | 2023-01-20 18:56 | P.EN_ITS ---
Event Note Event Note: Spinning Lathe Operator Automatic Note: I first assisted Dr Mccarthy with a primary section. I assisted Dr Mccarthy as directed. I independently closed the SQ layer with 3-0 vicryl without difficulty. I then independently closed the skiin incision with 4-0 vicryl on a Mainor needle without difficulty. Hemostasis noted at completion. Patient tolerated procedure well.
[2023-01-20] MEDS: ACETAMINOPHEN 500 MG TABLET 1000 MG PO (23:46)
[2023-01-21] MEDS: KETOROLAC TROMETHAMINE 30 MG/ML VIAL IVP (02:46)
[2023-01-21 04:30] VITALS: BP 121/72; PULSE 54; RESP 16; TEMP 37.2; O2SAT 95
[2023-01-21 05:55] LABS: Basophils Percent Auto 0.2 % (0.2-2.0); Hematocrit 28.5 % (36.0-48.0); Immature Granulocytes Abs Auto 0.03 10^3/uL (0.00-0.03); Immature Granulocytes Pct Auto 0.3 % (0.0-0.5); Lymphocytes Absolute Auto 1.2 10^3/uL (1.2-3.8); Lymphocytes Percent Auto 11.8 % (20.5-60.0); Mean Corpuscular HGB Conc 35.1 g/dL (29.9-35.2); Mean Corpuscular Hemoglobin 32.4 pg (26.7-34.0); Mean Corpuscular Volume 92.2 fL (81.0-99.0); Monocytes Absolute Auto 0.6 10^3/uL (0.3-0.8); Monocytes Percent Auto 5.6 % (1.7-12.0); Neutrophils Absolute Auto 8.4 10^3/uL (1.4-6.5); Neutrophils Percent Auto 82.1 % (43.0-75.0); Platelet Count 141 10^3/uL (150-450); Red Blood Count 3.09 10^6/uL (4.20-5.40); Red Cell Distribution Width 11.9 % (11.0-15.0); White Blood Count 10.2 10^3/uL (4.0-11.0)
[2023-01-21] MEDS: ENOXAPARIN SODIUM 40 MG/0.4 ML SYRINGE SUBQ (07:26)
[2023-01-21] MEDS: ACETAMINOPHEN 500 MG TABLET 1000 MG PO ×3 (07:27→21:32)
--- NOTE | 2023-01-21 07:38 | W.PC.ACHO ---
Registration Status: ADM IN Primary Language: [place] Leonean Preferred Language: [place]an Report given. Care relinquished Active Medications Generic Name Dose Route Start Last Admin Trade Name Freq PRN Reason Stop Dose Admin Acetaminophen 1,000 mg 01/21/23 00:01 01/21/23 07:27 Acetaminophen 500 Mg Tablet PO 1,000 mg Q6H ANNETTA Administration Al Hydroxide/Mg Hydroxide 2,400 mg 01/20/23 18:35 Magnesium Hydroxide 2,400 Mg/10 Ml Oral.Susp PO Q6H PRN Dyspepsia Carboprost Tromethamine 250 mcg 01/20/23 15:47 Carboprost Tromethamine 250 Mcg/Ml 1 Ml Vial IM 01/21/23 19:00 Q15M PRN Bleeding Diphenhydramine HCl 25 mg 01/20/23 18:35 Diphenhydramine Hcl 50 Mg/Ml (1ml) Vial IV 01/21/23 18:40 Q6H PRN Itching Docusate Sodium 100 mg 01/21/23 09:00 Docusate Sodium 100 Mg Capsule PO BID ANNETTA Enoxaparin Sodium 40 mg 01/21/23 06:00 01/21/23 07:26 Enoxaparin Sodium 40 Mg/0.4 Ml Syringe SUBQ 40 mg Q24H ANNETTA Administration Sodium Chloride 1,000 mls @ 125 mls/hr 01/20/23 16:45 Sodium Chloride 0.9% 1,000 Ml IV .Q8H ANNETTA Ibuprofen 800 mg 01/22/23 02:30 Ibuprofen 400 Mg Tablet PO 01/23/23 23:59 Q8H ANNETTA Ketorolac Tromethamine 30 mg 01/20/23 18:30 01/21/23 02:46 Ketorolac Tromethamine 30 Mg/Ml Vial IVP 01/21/23 18:31 30 mg Q8H ANNETTA Administration Methylergonovine Maleate 0.2 mg 01/20/23 15:47 Methylergonovine Maleate 0.2 Mg/Ml Ampule IM 01/22/23 15:48 ONCE PRN Uterine Contractility/Contract Methylergonovine Maleate 0.2 mg 01/20/23 15:47 Methylergonovine Maleate 0.2 Mg Tablet PO 01/22/23 15:48 Q4H PRN Uterine Contractility/Contract Misoprostol 600 mcg 01/20/23 15:47 Misoprostol 100 Mcg Tablet PO 01/22/23 15:48 ONCE PRN Uterine Bleeding Misoprostol 800 mcg 01/20/23 15:47 Misoprostol 100 Mcg Tablet SL 01/22/23 15:48 ONCE PRN Uterine Bleeding Misoprostol 1,000 mcg 01/20/23 15:47 Misoprostol 100 Mcg Tablet [place] 01/22/23 15:48 ONCE PRN Uterine Bleeding Ondansetron HCl 4 mg 01/20/23 18:35 Ondansetron Pf 4 Mg/2 Ml Vial IV Q6H PRN Nausea And Vomiting Ondansetron HCl 4 mg 01/20/23 15:52 Ondansetron 4 Mg Rapdis Tablet SL Q6H PRN Nausea And Vomiting Oxycodone HCl 5 mg 01/20/23 18:40 Oxycodone Hcl 5 Mg Tablet PO 01/23/23 23:59 QID PRN Breakthrough Pain Senna 17.2 mg 01/20/23 20:00 Sennosides 8.6 Mg Tablet PO QHS PRN Constipation Simethicone 80 mg 01/20/23 18:35 Simethicone 80 Mg Tab.Chew PO QID PRN Abdominal Distention Diet Category Date Time Status Regular Consistency Diet Diet 01/20/23 18:27 Active IV Insertion/Site Date of IV Line Insertion [ 01/20/23 Long PIV (>1.75 in) 20g right Hand] IV Insertion Time [Long PIV (> 16:00 1.75 in) 20g right Hand] Neurology Patient orientation (short person,place,time list) Respiratory Pulse Oximetry 95 Pulse Oximetry 95 Pulse Oximetry 97 Pulse Oximetry 97 Pulse Oximetry 97 Pulse Oximetry 97 Pulse Oximetry 97 Pulse Oximetry 97 Pulse Oximetry 97 Pulse Oximetry 98 Pulse Oximetry 98 Pulse Oximetry 98 Pulse Oximetry 97 Pulse Oximetry 98 Pulse Oximetry 98 Pulse Oximetry 97 Pulse Oximetry 96 Pulse Oximetry 99 Pulse Oximetry 99 Pulse Oximetry 100 Pulse Oximetry 100 Pulse Oximetry 99 Pulse Oximetry 97 Pulse Oximetry 99 Pulse Oximetry 99 Pulse Oximetry 97 Oxygen Delivery Method Room Air Oxygen Delivery Method Room Air Oxygen Delivery Method Room Air Oxygen Delivery Method Room Air Oxygen Delivery Method Room Air Oxygen Delivery Method Room Air Oxygen Delivery Method Room Air Oxygen Delivery Method Room Air Cardiology Heart Sounds Strong,Regular Catheter Date Urinary Catheter Removed 01/21/23 [Urethral] Time Urinary Catheter 04:55 Discontinued [Urethral]
--- NOTE | 2023-01-21 08:14 | PM.OBPN ---
OB - PN: Subj Subjective Patient comments: no complaints and pain well controlled [place] status: doing well Exam Constitutional Vital Signs, click to edit/add: Last Vital Signs Temp 98.9 F 01/21/23 04:30 Pulse 54 L 01/21/23 04:30 Resp 16 01/21/23 04:30 BP 121/72 01/21/23 04:30 Pulse Ox 95 01/21/23 04:30 O2 Del Method Room Air 01/21/23 04:30 Documenting provider has reviewed patient's vital signs: yes Common normals: no apparent distress Respiratory Common normals: normal respiratory effort and clear to auscultation bilaterally Cardio Common normals: regular rate and regular rhythm Extremity Common normals: normal to inspection and no clubbing, cyanosis or edema Results Labs Labs: Short CBC 01/20/23 01/21/23 Range/Units 15:30 05:42 WBC 10.0 10.2 (4.0-11.0) 10^3/uL Hgb 12.9 10.0 L (12.0-16.0) g/dL Hct 36.4 28.5 L (36.0-48.0) % Plt Count 161 141 L (150-450) 10^3/uL Urine 01/20/23 Range/Units 15:30 Urine Color Lt. yellow (YELLOW) Urine Clarity Clear (CLEAR) Urine pH 6.5 (5.0-9.0) Ur Specific [place] <=1.005 A (1.005-1.025) Urine Protein Negative (NEG/TRACE) mg/dL Urine Glucose (UA) Negative (NEGATIVE) mg/dL OB - PN: A/P Assessment and Plan (1) Post-dates : Plan - day: 1 Plan: routine postop care Time Spent with Patient Time: Total time spent is greater than 50% in coordination of care (as documented) at patient's floor/unit and/or counseling patient: Total time spent with greater than 50% in coordination of care (as documented) at patient's floor/unit and/or counseling patient: less than 15 minutes
[2023-01-21] MEDS: DOCUSATE SODIUM 100 MG CAPSULE PO ×2 (08:34→21:33)
[2023-01-21 08:37] VITALS: BP 135/79; PULSE 58; TEMP 36.2
[2023-01-21 08:57] VITALS: RESP 16
--- NOTE | 2023-01-21 12:19 | W.PC.ACHO ---
Registration Status: ADM IN Primary Language: Greek Preferred Language: Greek Report received from Roger MARTINEZ. Mykel Nelson RN assumes care at 1200. Active Medications Generic Name Dose Route Start Last Admin Trade Name Freq PRN Reason Stop Dose Admin Acetaminophen 1,000 mg 01/21/23 00:01 01/21/23 07:27 Acetaminophen 500 Mg Tablet PO 1,000 mg Q6H ANNETTA Administration Al Hydroxide/Mg Hydroxide 2,400 mg 01/20/23 18:35 Magnesium Hydroxide 2,400 Mg/10 Ml Oral.Susp PO Q6H PRN Dyspepsia Carboprost Tromethamine 250 mcg 01/20/23 15:47 Carboprost Tromethamine 250 Mcg/Ml 1 Ml Vial IM 01/21/23 19:00 Q15M PRN Bleeding Diphenhydramine HCl 25 mg 01/20/23 18:35 Diphenhydramine Hcl 50 Mg/Ml (1ml) Vial IV 01/21/23 18:40 Q6H PRN Itching Docusate Sodium 100 mg 01/21/23 09:00 01/21/23 08:34 Docusate Sodium 100 Mg Capsule PO 100 mg BID ANNETTA Administration Enoxaparin Sodium 40 mg 01/21/23 06:00 01/21/23 07:26 Enoxaparin Sodium 40 Mg/0.4 Ml Syringe SUBQ 40 mg Q24H ANNETTA Administration Sodium Chloride 1,000 mls @ 125 mls/hr 01/20/23 16:45 Sodium Chloride 0.9% 1,000 Ml IV .Q8H ANNETTA Ibuprofen 800 mg 01/22/23 02:30 Ibuprofen 400 Mg Tablet PO 01/23/23 23:59 Q8H ANNETTA Ketorolac Tromethamine 30 mg 01/20/23 18:30 01/21/23 02:46 Ketorolac Tromethamine 30 Mg/Ml Vial IVP 01/21/23 18:31 30 mg Q8H ANNETTA Administration Methylergonovine Maleate 0.2 mg 01/20/23 15:47 Methylergonovine Maleate 0.2 Mg/Ml Ampule IM 01/21/23 19:00 ONCE PRN Uterine Contractility/Contract Methylergonovine Maleate 0.2 mg 01/20/23 15:47 Methylergonovine Maleate 0.2 Mg Tablet PO 01/21/23 19:00 Q4H PRN Uterine Contractility/Contract Misoprostol 600 mcg 01/20/23 15:47 Misoprostol 100 Mcg Tablet PO 01/21/23 19:00 ONCE PRN Uterine Bleeding Misoprostol 800 mcg 01/20/23 15:47 Misoprostol 100 Mcg Tablet SL 01/21/23 19:00 ONCE PRN Uterine Bleeding Misoprostol 1,000 mcg 01/20/23 15:47 Misoprostol 100 Mcg Tablet [place] 01/21/23 19:00 ONCE PRN Uterine Bleeding Ondansetron HCl 4 mg 01/20/23 18:35 Ondansetron Pf 4 Mg/2 Ml Vial IV Q6H PRN Nausea And Vomiting Ondansetron HCl 4 mg 01/20/23 15:52 Ondansetron 4 Mg Rapdis Tablet SL Q6H PRN Nausea And Vomiting Oxycodone HCl 5 mg 01/20/23 18:40 Oxycodone Hcl 5 Mg Tablet PO 01/23/23 23:59 QID PRN Breakthrough Pain Senna 17.2 mg 01/20/23 20:00 Sennosides 8.6 Mg Tablet PO QHS PRN Constipation Simethicone 80 mg 01/20/23 18:35 Simethicone 80 Mg Tab.Chew PO QID PRN Abdominal Distention Diet Category Date Time Status Regular Consistency Diet Diet 01/20/23 18:27 Active IV Insertion/Site Date of IV Line Insertion [ 01/20/23 Long PIV (>1.75 in) 20g right Hand] IV Insertion Time [Long PIV (> 16:00 1.75 in) 20g right Hand] Neurology Patient orientation (short person,place,time list) Respiratory Pulse Oximetry 95 Pulse Oximetry 95 Pulse Oximetry 97 Pulse Oximetry 97 Pulse Oximetry 97 Pulse Oximetry 97 Pulse Oximetry 97 Pulse Oximetry 97 Pulse Oximetry 97 Pulse Oximetry 98 Pulse Oximetry 98 Pulse Oximetry 98 Pulse Oximetry 97 Pulse Oximetry 98 Pulse Oximetry 98 Pulse Oximetry 97 Pulse Oximetry 96 Pulse Oximetry 99 Pulse Oximetry 99 Pulse Oximetry 100 Pulse Oximetry 100 Pulse Oximetry 99 Pulse Oximetry 97 Pulse Oximetry 99 Pulse Oximetry 99 Pulse Oximetry 97 Oxygen Delivery Method Room Air Oxygen Delivery Method Room Air Oxygen Delivery Method Room Air Oxygen Delivery Method Room Air Oxygen Delivery Method Room Air Oxygen Delivery Method Room Air Oxygen Delivery Method Room Air Oxygen Delivery Method Room Air Oxygen Delivery Method Room Air Cardiology Heart Sounds Strong,Regular Heart Sounds Strong,Regular Renal Bladder Pattern Continent Catheter Date Urinary Catheter Removed 01/21/23 [Urethral] Time Urinary Catheter 04:55 Discontinued [Urethral]
[2023-01-21 12:40] VITALS: RESP 16; TEMP 36.7
[2023-01-21 12:51] VITALS: BP 123/74; PULSE 57
--- NOTE | 2023-01-21 19:53 | W.PC.ACHO ---
Registration Status: ADM IN Primary Language: [place]an Preferred Language: [place]ill[place] Report given to Celestino Kerr RN. Active Medications Generic Name Dose Route Start Last Admin Trade Name Freq PRN Reason Stop Dose Admin Acetaminophen 1,000 mg 01/21/23 00:01 01/21/23 12:49 Acetaminophen 500 Mg Tablet PO 1,000 mg Q6H ANNETTA Administration Al Hydroxide/Mg Hydroxide 2,400 mg 01/20/23 18:35 Magnesium Hydroxide 2,400 Mg/10 Ml Oral.Susp PO Q6H PRN Dyspepsia Docusate Sodium 100 mg 01/21/23 09:00 01/21/23 08:34 Docusate Sodium 100 Mg Capsule PO 100 mg BID ANNETTA Administration Enoxaparin Sodium 40 mg 01/21/23 06:00 01/21/23 07:26 Enoxaparin Sodium 40 Mg/0.4 Ml Syringe SUBQ 40 mg Q24H ANNETTA Administration Sodium Chloride 1,000 mls @ 125 mls/hr 01/20/23 16:45 Sodium Chloride 0.9% 1,000 Ml IV .Q8H ANNETTA Ibuprofen 800 mg 01/22/23 02:30 Ibuprofen 400 Mg Tablet PO 01/23/23 23:59 Q8H ANNETTA Levothyroxine Sodium 25 mcg 01/22/23 06:30 Levothyroxine Sodium 25 Mcg Tablet PO ACB ANNETTA Ondansetron HCl 4 mg 01/20/23 18:35 Ondansetron Pf 4 Mg/2 Ml Vial IV Q6H PRN Nausea And Vomiting Ondansetron HCl 4 mg 01/20/23 15:52 Ondansetron 4 Mg Rapdis Tablet SL Q6H PRN Nausea And Vomiting Oxycodone HCl 5 mg 01/20/23 18:40 Oxycodone Hcl 5 Mg Tablet PO 01/23/23 23:59 QID PRN Breakthrough Pain Senna 17.2 mg 01/20/23 20:00 Sennosides 8.6 Mg Tablet PO QHS PRN Constipation Simethicone 80 mg 01/20/23 18:35 Simethicone 80 Mg Tab.Chew PO QID PRN Abdominal Distention Respiratory Pulse Oximetry 95 Pulse Oximetry 95 Pulse Oximetry 97 Pulse Oximetry 97 Pulse Oximetry 97 Pulse Oximetry 97 Pulse Oximetry 97 Pulse Oximetry 97 Pulse Oximetry 97 Pulse Oximetry 98 Pulse Oximetry 98 Pulse Oximetry 98 Pulse Oximetry 97 Oxygen Delivery Method Room Air Oxygen Delivery Method Room Air Oxygen Delivery Method Room Air Oxygen Delivery Method Room Air Oxygen Delivery Method Room Air Oxygen Delivery Method Room Air Cardiology Heart Sounds Strong,Regular Heart Sounds Strong,Regular Renal Bladder Pattern Continent Bladder Pattern Continent Catheter Date Urinary Catheter Removed 01/21/23 [Urethral] Time Urinary Catheter 04:55 Discontinued [Urethral]
[2023-01-22 00:19] VITALS: BP 128/69; PULSE 68
[2023-01-22] MEDS: ACETAMINOPHEN 500 MG TABLET 1000 MG PO ×3 (04:32→22:34)
[2023-01-22] MEDS: ENOXAPARIN SODIUM 40 MG/0.4 ML SYRINGE SUBQ (06:41)
[2023-01-22] MEDS: IBUPROFEN 400 MG TABLET 800 MG PO ×2 (06:42→17:15)
[2023-01-22] MEDS: LEVOTHYROXINE SODIUM 25 MCG TABLET PO (06:43)
--- NOTE | 2023-01-22 08:08 | PM.OBPN ---
OB - PN: Subj Subjective Patient comments: no complaints [place] feeding status: exclusively Exam Constitutional Vital Signs, click to edit/add: Last Vital Signs Temp 98.0 F 01/21/23 12:40 Pulse 68 01/22/23 00:19 Resp 16 01/21/23 12:40 BP 128/69 01/22/23 00:19 Pulse Ox 95 01/21/23 04:30 O2 Del Method Room Air 01/21/23 12:40 Documenting provider has reviewed patient's vital signs: yes Common normals: no apparent distress HENMT Common normals: normocephalic Eye Common normals: EOMs intact bilaterally Neck & C-Spine Common normals: full ROM and no lymphadenopathy Lymph Lymphatic: no lymphadenopathy noted Chest Common normals: inspection of chest normal Respiratory Common normals: normal respiratory effort, no retractions and clear to auscultation bilaterally Effort & inspection: able to speak in complete sentences Cardio Common normals: regular rate, regular rhythm and no murmurs Rate: regular rate Rhythm: regular rhythm GI Common normals: Normal to inspection, nondistended, normoactive bowel sounds present and non-tender Palpation: soft Common normals: external appearance normal Back & Pelvis Common normals: no CVA tenderness Thoracic spine/upper back: normal to inspection Extremity Common normals: normal to inspection Psych Common normals: mental status grossly normal, thought process normal, cooperative, affect normal and speech normal OB - PN: A/P Assessment and Plan (1) Post-dates : Plan - day: 2 Plan: routine postop care Time Spent with Patient Time: Total time spent is greater than 50% in coordination of care (as documented) at patient's floor/unit and/or counseling patient: Total time spent with greater than 50% in coordination of care (as documented) at patient's floor/unit and/or counseling patient: less than 15 minutes
[2023-01-22 09:36] VITALS: BP 132/70; PULSE 71
[2023-01-22 09:41] VITALS: RESP 14; TEMP 36.4
[2023-01-22] MEDS: DOCUSATE SODIUM 100 MG CAPSULE PO ×2 (12:42→22:34)
--- NOTE | 2023-01-22 14:39 | PC.NURSE ---
LC into talk with pt. She is holding baby skin to skin and watching educational video on . Pt is very in tuned to breastfeed and eager for information. Given copy of Sleep, Suckle and Thrive for at home support. Mom states latching continues to go well. States latching to right side a bit more difficult unless she uses football hold. LC will continue with guidance as pt is 37 , history of PCOS, and hypothyroid. Will continue to monitor weight for infant and milk transitioning in.
[2023-01-22 17:15] VITALS: BP 149/83; PULSE 74
[2023-01-22 23:12] VITALS: BP 166/83; PULSE 62
[2023-01-22 23:13] VITALS: BP 140/71; PULSE 57; TEMP 36.8
[2023-01-23] MEDS: IBUPROFEN 400 MG TABLET 800 MG PO (02:45)
[2023-01-23] MEDS: ACETAMINOPHEN 500 MG TABLET 1000 MG PO (06:49)
[2023-01-23] MEDS: ENOXAPARIN SODIUM 40 MG/0.4 ML SYRINGE SUBQ (06:49)
[2023-01-23] MEDS: LEVOTHYROXINE SODIUM 25 MCG TABLET PO (06:51)
[2023-01-23 07:34] VITALS: BP 155/72; PULSE 55
[2023-01-23 07:45] VITALS: RESP 16; TEMP 36.7
[2023-01-23 08:43] VITALS: BP 136/70
--- NOTE | 2023-01-23 09:12 | PM.OBPN ---
OB - PN: Subj Subjective Patient comments: no complaints and pain well controlled [place] status: doing well Exam Constitutional Vital Signs, click to edit/add: Last Vital Signs Temp 98.1 F 01/23/23 07:45 Pulse 55 L 01/23/23 07:34 Resp 16 01/23/23 07:45 BP 136/70 01/23/23 08:43 Pulse Ox 95 01/21/23 04:30 O2 Del Method Room Air 01/22/23 17:05 Documenting provider has reviewed patient's vital signs: yes Common normals: no apparent distress Respiratory Common normals: normal respiratory effort and clear to auscultation bilaterally Cardio Common normals: regular rate and regular rhythm GI Common normals: Normal to inspection, nondistended, normoactive bowel sounds present Extremity Common normals: no calf tenderness OB - PN: A/P Assessment and Plan (1) Post-dates : Plan - day: 3 Plan: routine postop care, discharge home and follow up 6 weeks Time Spent with Patient Time: Total time spent is greater than 50% in coordination of care (as documented) at patient's floor/unit and/or counseling patient: Total time spent with greater than 50% in coordination of care (as documented) at patient's floor/unit and/or counseling patient: less than 15 minutes
--- NOTE | 2023-01-29 | DS_ITS ---
DISCHARGE DATE: ??01/29/2023 PRIMARY DIAGNOSES: 1.? Intrauterine at 40 6/7 weeks. 2.? Post dates. 3.? Advanced maternal age. 4.? Hypothyroidism. 5.? Recurrent variable deceleration. PROCEDURE:? section. HOSPITAL COURSE:? As expected.? Please see chart for full details.? LABORATORY DATA:? Please see chart. COMPLICATIONS:? None. DISCHARGE CONDITION:? Stable. CONSULTATION:? Anesthesia. DISCHARGE INSTRUCTIONS: 1.? Diet:? Regular. 2.? Medications: a.? Percocet 5/325 one to two p.o. every 4-6 hours p.r.n. pain. b.? Motrin 800 one p.o. every 8 hours p.r.n. pain. 3.? Followup in one week. Restrictions:? Pelvic rest for 6 weeks.? No heavy lifting.? May drive when pain free and no longer on narcotics. MTDD
== END 2023-01-23 13:50 | disposition home or self-care (01) | DRG 788 ==
PROVIDERS: Admitting Provider Midwife; Visit Provider Obstetrics & Gynecology
PROC: 10D00Z1 Extraction of Products of Conception, Low, Open Approach (ICD-10-PCS; CPT 59514; principal; 2023-01-20 17:00)
DX: O76 Abnormality in fetal heart rate and rhythm complicating labor and delivery (principal); O99.284 Endocrine, nutritional and metabolic diseases complicating childbirth; E03.9 Hypothyroidism, unspecified; O48.0 Post-term pregnancy; Z37.0 Single live birth; Z3A.40 40 weeks gestation of pregnancy
CPT/HCPCS: 36415; 59050; 64486; 80307; 81001; 85025; 85027; 86850; 86900; 86901; 88307; 96372; 96374; 96375

== ENCOUNTER 2023-01-29 08:15 | Outpatient (OUT) | payer OTHER, SELFPAY ==
--- NOTE | 2023-01-29 13:26 | PC.NURSE ---
Yina Pruitt and 9 day old Cl arrive for follow up visit. Parents states really getting the hang of this . Both express pleasure with having infant and caring for her. Sonal's assessment WNL and she is without complaints at this time. States was seen per Cyrus Vann CNM and steri strips removed. Incision clear without redness or drainage. Pt states I am making so much milk Very pleased that going well and baby is feeding well. Revisited desires for vaginal delivery and states I am pretty much at peace with all of that because she is nursing so well Able to latch and feed independently. very supportive and involved with and . Baby Cl gaining weight, feeds well, and has 8-10 wets with 6+ yellow stools daily. Mom encouraged to attend MOMS group in February. Verbalized confidence in self and aware to call as needed.
[2023-01-29 13:28] VITALS: BP 137/93; PULSE 85; RESP 16; TEMP 36.7; O2SAT 97
== END 2023-01-29 11:45 | disposition home or self-care (01) ==
PROVIDERS: Visit Provider Midwife
DX: Z39.2 Encounter for routine postpartum follow-up (principal)